=== PATIENT | female | born 1945 | race Caucasian/White ===

== ENCOUNTER 2023-06-11 11:36 | Outpatient (OUT) | payer MEDICARE, SELFPAY ==
--- NOTE | 2023-06-11 11:53 | XR_ITS ---
The [address] [address] Patient Name: SETH PEREZ MRN: [id number] date: 1945 Sex: F Assigned Patient Location: [facility] Current Patient Location: [facility] Accession/Order Number: [id number] Exam Date: 06/11/2023 11:58 Report Date: 06/11/2023 13:05 At the request of: JUAN MCKEE Procedure: XR hip RT min 2V PROCEDURE: XR hip RT min 2V COMPARISON: None. HISTORY: Right Hip Pain FINDINGS: BONES:No acute fracture or dislocation. Joint space narrowing. Marginal osteophyte formation. Enthesopathic spurring of the greater trochanter SOFT TISSUES:Negative. No visible soft tissue swelling. EFFUSION:None visible. OTHER: Negative. XR/XR hip RT min 2V IMPRESSION: Osteoarthritis Electronically authenticated by: EDNA KRAFT Date: 06/11/2023 13:05
== END 2023-06-11 11:37 | disposition home or self-care (01) ==
LOC: RAD 11:41
PROVIDERS: PCP Internal Medicine; Visit Provider Nurse Practitioner Family
DX: M25.551 Pain in right hip (principal); M16.11 Unilateral primary osteoarthritis, right hip
CPT/HCPCS: 73502